=== PATIENT | female | born 1965 | race Caucasian/White ===

== ENCOUNTER 2024-03-26 13:36 | Outpatient (CLI) | payer OTHER, SELFPAY ==
--- NOTE | ~2024-03-26 | XR_ITS ---
XR shoulder LT min 2V DATE: 03/26/2024 14:02 INDICATION: Left shoulder pain TECHNIQUE: 4 views COMPARISON: None FINDINGS: No fracture or dislocation, periosteal reaction or bone destruction. Minimal degenerative c hange of the left acromioclavicular joint. No abnormal left shoulder soft tissue calcification. Aortic arch calcification. IMPRESSION: Minimal degenerative change at the left acromioclavicular joint Reviewed, dictated and finalized at location [facility].
--- NOTE | ~2024-03-26 | XR_ITS ---
XR elbow RT 2V DATE: 03/26/2024 14:03 INDICATION: Right elbow pain TECHNIQUE: AP and lateral views COMPARISON: None FINDINGS: No fracture or dislocation, periosteal reaction or bone destruction or joint effusion. Join t spaces are preserved. IMPRESSION: Negative Reviewed, dictated and finalized at location [facility]. IMPRESSION: Negative
== END 2024-03-26 13:37 | disposition home or self-care (01) ==
DX: M79.622 Pain in left upper arm (principal); M25.521 Pain in right elbow
CPT/HCPCS: 73030; 73070

== ENCOUNTER 2024-04-29 08:04 | Outpatient (CLI) | payer OTHER, SELFPAY ==
--- NOTE | ~2024-04-29 | MR_ITS ---
MRI of the cervical spine Clinical History: Neck pain Technique: Axial T2-weighted and gradient images, and sagittal T1-weighted, T2-weighted, and STIR ta ges were acquired. Findings: There is no fracture or subluxation of cervical spine. Vertebral bodies maintain normal ali gnment. No bone marrow signal abnormalities seen. C2-C3, there is no disc bulge or herniation. No spinal canal stenosis, cord compression, or neural fo raminal narrowing. There is minimal facet hypertrophy. At C3-C4, there is moderate to advanced degenerative disc narrowing. There is mild disc osteophyte co mplex without canal stenosis or cord compression. There is bilateral facet arthropathy, with bilatera l neural foraminal narrowing, right worse than left. At C4-C5, there is advanced degenerative disc narrowing. There is minimal disc osteophyte complex, wi thout canal stenosis or cord compression. There is significant bilateral neural foraminal narrowing, left worse than right, with bilateral facet arthropathy. At C5-C6, there is advanced degenerative disc narrowing. There is mild disc osteophyte complex. There is mild canal stenosis without laz cord compression. There is left neural foraminal narrowing. Rig ht neural foramen preserved. At C6-C7, there is moderate degenerative disc narrowing. There is mild canal stenosis with minimal di sc osteophyte convex. There is bilateral neural foraminal narrowing, left worse than right. No abnormal signal seen in the spinal cord. Paravertebral soft tissues are unremarkable. Impression: Moderate degenerative spondylosis, as above. Reviewed, dictated and finalized at [facility]. [employer] DIRECT[employer] Impression: Moderate degenerative spondylosis, as above.
== END 2024-04-29 08:05 | disposition home or self-care (01) ==
LOC: MICIMG 08:07
DX: M47.892 Other spondylosis, cervical region (principal)
CPT/HCPCS: 72141